=== PATIENT | female | born 2000 | race Caucasian/White ===

== ENCOUNTER 2021-06-10 12:19 | Emergency (ER) | payer OTHER ==
[2021-06-10 13:37] LABS: HEMOGLOBIN 13.6 gm/dl (12.3-15.3); RED BLOOD COUNT 5.12 M/UL (4.00-5.10); WHITE BLOOD COUNT 13.2 K/UL (4.5-11.0)
[2021-06-10 13:59] LABS: BUN/CREATININE RATIO 10 (0-10)
[2021-06-10] MEDS ORDERED: MACROBID 100 M100 MG PO (16:27)
== END 2021-06-10 17:50 | disposition home or self-care (01) ==
LOC: ER1 12:19
PROVIDERS: Emergency Medicine
DX: O20.9 Hemorrhage in early pregnancy, unspecified (principal); Z3A.01 Less than 8 weeks gestation of pregnancy
CPT/HCPCS: 76801; 80053; 81001; 84702; 85025; 86900; 86901; 87086; 99284